=== PATIENT | male | born 1955 | race Caucasian/White ===

== ENCOUNTER 2019-07-05 15:30 | Emergency (ER) | payer BC ==
--- NOTE | 2019-07-05 15:56 | EDM.PDOC ---
ED HPI GENERAL MEDICAL PROBLEM - General Chief Complaint: General Stated Complaint: SLICED LEFT RING FINGER Time Seen by Provider: 07/05/19 15:47 Source of Information: Reports: Patient History Limitations: Reports: No Limitations - History of Present Illness INITIAL COMMENTS - FREE TEXT/NARRATIVE: Patient presents with finger laceration from a piece of machinery just prior to arrival. It wasn't crushed just cut he says. Not work comp. No numbness or weakness in the finger. Denies any other injuries or pain. Pt has IDDM. Last tetanus is unknown. 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: Dressing(s) Left Finger-Ring Pain Score (Numeric/FACES): 2 - Related Data Allergies Allergy/AdvReac Type Severity Reaction Status Date / Time No Known Drug Allergies Allergy Cannot Verified 07/05/19 15:43 Remember Home Meds: Home Meds Aspirin [Adult Low Dose Aspirin EC] 81 mg PO BEDTIME 07/05/19 [History] Insulin Aspart [NovoLOG] 15 units SQ ASDIRECTED 07/05/19 [History] Insulin Detemir [Levemir Flextouch] 30 units SQ BEDTIME 07/05/19 [History] Valsartan/Hydrochlorothiazide [Diovan Hct 160-12.5 mg Tab] 1 each PO BEDTIME [History] atorvaSTATin Calcium [Atorvastatin Calcium] 20 mg PO BEDTIME 07/05/19 [History] metFORMIN HCl [Metformin HCl] 1,000 mg PO BIDMEALS 07/05/19 [History] metFORMIN HCl [Metformin HCl] 500 mg PO BEDTIME 07/05/19 [History] ED ROS GENERAL - Review of Systems Review Of Systems: See Below Constitutional: Denies: Fever, Chills, Malaise, Weakness HEENT: Reports: No Symptoms Respiratory: Denies: Shortness of Breath, Cough Cardiovascular: Denies: Chest Pain, Lightheadedness, Syncope Endocrine: Reports: No Symptoms GI/Abdominal: Denies: Abdominal Pain, Vomiting : Reports: No Symptoms Musculoskeletal: Reports: No Symptoms Skin: Denies: Cyanosis, Jaundice, Mottled, Pallor, Diaphoresis Neurological: Denies: Confusion, Dizziness, Seizure, Syncope, Trouble Speaking, Difficulty Walking Psychiatric: Denies: Agitation, Anxiety, Confusion ED EXAM, GENERAL - Physical Exam Exam: See Below Exam Limited By: No Limitations General Appearance: Alert, WD/WN, No Apparent Distress Eye Exam: Bilateral Eye: EOMI, Normal Inspection, PERRL Ears: Normal External Exam, Hearing Grossly Normal Nose: Normal Inspection, No Blood Throat/Mouth: Normal Inspection, Normal Lips, Normal Voice, No Airway Compromise Head: Atraumatic, Normocephalic Neck: Normal Inspection, Full Range of Motion Respiratory/Chest: No Respiratory Distress, Lungs Clear, Normal Breath Sounds, No Accessory Muscle Use Cardiovascular: Regular Rate, Rhythm, No Murmur GI/Abdominal: No Distention Back Exam: Normal Inspection, Full Range of Motion. No: CVA Tenderness (L), CVA Tenderness (R) Extremities: Normal Inspection (except CC), Normal Range of Motion, Other ( jagged laceration of volar PIP left ring finger; distal CMS is intact including flexion against resistance.) Neurological: Alert, Oriented, Normal Cognition, No Motor/Sensory Deficits Psychiatric: Normal Affect, Normal Mood Skin Exam: Warm, Dry, Intact (except CC), Normal Color, No Rash ED GENERAL MEDICAL PROCEDURES - Laceration/Wound Repair Left Anterior Proximal Digit - 4th (Ring) Lac/wound length in cm: 4 Appearance: Subcutaneous, Stellate, Irregular, Clean Distal NVT: Neuro & Vascular Intact, No Tendon Injury Anesthetic Type: Local Local Anesthesia - Lidocaine (Xylocaine): 1% Plain (finger block) Local Anesthetic Volume: 3cc Skin Prep: Chlorhexidine (Hibiciens) (20 minutes soak) Exploration/Debridement/Repair: Wound Explored, In a Bloodless Field, Explored to Base Suture Size: 5-0 # of Sutures: 7 Suture Type: Nylon, Interrupted, Simple Sterile Dressing Applied: Nurse Tetanus Status Addressed: Yes Complications: No Course - Vital Signs Last Recorded V/S: Last Vital Signs Temp 96.4 F 07/05/19 15:35 Pulse 77 07/05/19 15:35 Resp 20 07/05/19 15:35 BP 124/81 07/05/19 15:35 Pulse Ox 96 07/05/19 15:35 - Re-Assessments/Exams Free Text/Narrative Re-Assessment/Exam: 07/05/19 16:43 Discussed findings, expectations and treatment plan with patient. TDAP given. Sterile technique was used for procedure. Discussed Ibuprofen and/or Tylenol as needed for pain control. Patient tolerated the procedure well and was discharged to home in stable condition. Departure - Departure Time of Disposition: 16:43 Disposition: Home, Self-Care 01 Condition: Good Clinical Impression: Laceration of finger of left hand without foreign body without damage to nail Qualifiers: Encounter type: initial encounter Finger: ring finger Qualified Code(s): S61.215A - Laceration without foreign body of left ring finger without damage to nail, initial encounter - Discharge Information Instructions: Laceration Care, Adult, [id number] Referrals: Manisha Maddox PA-C [Primary Care Provider] - Additional Instructions: 1. Keep wound clean and dry except for washing under fresh running water. 2. Follow up with your PCP in 10 days for suture removal. 3. Recheck sooner if any sign of infection or other worsening.
[2019-07-05] MEDS ORDERED: Diphtheria,Pertussis(Acell),Tetanus Vaccine 0.5 ML SDV IM ONE (15:58)
[2019-07-05] MEDS ORDERED: Lidocaine 1% 20 ML MDV INJECT ONE (16:08)
[2019-07-05] MEDS ORDERED: Bacitracin/Neomycin/Polymyxin B Oint 0.9 GM U/D Packet ONE (16:42)
== END 2019-07-05 17:05 | disposition home or self-care (01) ==
LOC: KA.ED 15:30
DX: S61.215A Laceration without foreign body of left ring finger without damage to nail, initial encounter (principal); E11.9 Type 2 diabetes mellitus without complications; Z79.82 Long term (current) use of aspirin; Z79.4 Long term (current) use of insulin; W26.8XXA Contact with other sharp object(s), not elsewhere classified, initial encounter
CPT/HCPCS: 12002; 12013; 90471; 90715; 96372; 99283; J2001